=== PATIENT | male | born 1995 | race Asian ===

== ENCOUNTER → 2016-12-12 | Outpatient (CLI) | payer OTHER ==
[~2016-12-12] MED LIST: NOCURR
== END | disposition home or self-care (01) ==
LOC: RADPV 10:42
PROVIDERS: ATTEND Family Medicine
DX: M25.551 Pain in right hip (principal); M25.552 Pain in left hip
CPT/HCPCS: 73521

== ENCOUNTER → 2016-12-13 | Outpatient (CLI) | payer OTHER | END | disposition home or self-care (01) | LOC: RADPV 14:13 | PROVIDERS: ATTEND Family Medicine | DX: N50.89 Other specified disorders of the male genital organs (principal) | CPT/HCPCS: 76870 ==

== ENCOUNTER → 2017-06-21 | Outpatient (CLI) | payer OTHER | END | disposition home or self-care (01) | LOC: RADPV 11:33 | PROVIDERS: ATTEND Family Medicine | DX: M25.571 Pain in right ankle and joints of right foot (principal) ==